=== PATIENT | male | born 1980 | race Hispanic/Latino ===

== ENCOUNTER 2018-11-27 13:58 | Emergency (ER) | payer SELFPAY ==
[2018-11-27] MEDS ORDERED: VISTARIL25 MG PO (14:46)
[2018-11-27] MEDS ORDERED: [UNRECOGNIZED DRUG - OTHER] PO (14:49)
[2018-11-27] MEDS ORDERED: [UNRECOGNIZED DRUG - OTHER] PO (14:50)
[2018-11-27 14:55] VITALS: BP 127/80
== END 2018-11-27 14:55 | disposition home or self-care (01) | DRG 93 ==
LOC: ED 13:58
DX: R20.8 Other disturbances of skin sensation (principal)